=== PATIENT | male | born 1945 | race Asian ===

== ENCOUNTER → 2020-12-28 | Outpatient (CLI) | payer MEDICARE ==
[~2020-12-28] MED LIST: ACET325T26 PO; ASPI81TA45 PO; ATOR-2 PO; DULA1.5P PO; FURO-93 PO; FURO40TA6 PO; INSU100I34 INJ; METO50TA4 PO; SACU1TAB PO; SPIR25TA PO; TICA90TA PO
== END | disposition home or self-care (01) ==
LOC: CVU 08:04
PROVIDERS: ATTEND Internal Medicine Cardiovascular Disease
DX: I08.0 Rheumatic disorders of both mitral and aortic valves (principal); I25.10 Atherosclerotic heart disease of native coronary artery without angina pectoris; I11.9 Hypertensive heart disease without heart failure; E78.5 Hyperlipidemia, unspecified; E11.9 Type 2 diabetes mellitus without complications; Z87.891 Personal history of nicotine dependence; Z79.01 Long term (current) use of anticoagulants
CPT/HCPCS: 93306